=== PATIENT | female | born 1985 | race Caucasian/White ===

== ENCOUNTER 2020-11-27 14:21 | Emergency (ER) | payer OTHER, SELFPAY ==
[2020-11-27 14:40] VITALS: BP 134/78; PULSE 130; RESP 20; TEMP 37; O2SAT 100
--- NOTE | 2020-11-27 15:29 | ED.LOWEXIN ---
HPI - Extremity Injury (Lower) General Chief Complaint: Extremity Injury, Lower Stated Complaint: Fall Time Seen by Provider: 11/27/20 15:29 Source: patient and RN notes reviewed Mode of arrival: ambulatory Limitations: no limitations History of Present Illness HPI Narrative: 35-year-old female who presents ambulatory to [facility] with complaints of pain to her right hip area, mid thigh, and mid lower leg region with bruising noted and minimal tissue swelling of thigh and lower leg region. Patient states she was exercising outdoors and fell hitting the metal ney between 2 boxcars causing injury to her right leg.Patient states she also hit area on right lateral rib area but denies any pain to this area or any difficulty with her breathing, no bruising or swelling noted with lungs clear to auscultation.. Patient has small bruise to anterior aspect of her right hip, bruising and swelling to her right thigh and to her mid lower leg. Patient is ambulatory with steady gait, states that she has put a compression wrap to her right thigh which helps but has not taken any OTC pain medication.Recheck of heart rate 100 regular. MD complaint: hip injury, leg injury and fall Onset (ago): day(s) (1) Type of Injury: blunt Place: street/outdoors Severity: moderate Severity scale (1-10): 6 Relieving factors: nothing Exacerbating factors: weight bearing Context: fall and other (Contusion) Associated symptoms: other (Bruising) Other symptoms: none Treatments prior to arrival: other (Compression around thigh area) Related Data Allergies Allergy/AdvReac Type Severity Reaction Status Date / Time No Known Allergies Allergy Verified 11/27/20 15:18 Review of Systems Review of Systems: Narrative: CONSTITUTIONAL: Denies fever, chills, or sweats. EYES: Denies visual changes, redness, or discharge. ENT: Denies rhinorrhea, congestion, sore throat, or otalgia. CARDIOVASCULAR: Denies chest pain, palpitations, or edema. RESPIRATORY: Denies cough or dyspnea.no pain or difficulty with her breathing. GASTROINTESTINAL: Denies abdominal pain, nausea, vomiting, or diarrhea. GENITOURINARY: Denies dysuria or hematuria. SKIN: Denies rash or itching. MUSCULOSKELETAL: Denies back pain, joint pain, or myalgia.positive for bruising and swelling to her right thigh and mid right lower leg.small bruise anterior right hip. NEUROLOGIC: Denies headache, numbness, or weakness. PSYCHIATRIC:Positive history of anxiety or depression. All systems reviewed & are unremarkable except as noted in HPI and below PMFSH Past Medical History Medical History (Updated 11/29/20 @ 09:24 by Laurence Trotter NP) Arm fracture, right Bronchitis Depression GERD (gastroesophageal reflux disease) Kidney stones UTI (urinary tract infection) Surgical History Surgical History (Updated 11/29/20 @ 09:24 by Laurence Trotter NP) H/O tubal ligation History of tonsillectomy Previous section Family History Family History (Updated 11/29/20 @ 09:25 by Laurence Trotter NP) Father Hypertension Mother Breast cancer Social History Social History (Updated 11/29/20 @ 09:26 by Laurence Trotter NP) Smoking status: Current every day smoker Tobacco type: cigarettes Alcohol intake: unknown Substance use: unknown Living arrangements: with family Gender identity (if verbalized by the patient): Female Comments At time of signature agree with nursing documentation of past medical, surgical and social history. There is no pertinent family history relevant to presenting complaint. Exam Narrative: Exam Narrative: GENERAL: Well-appearing, well-nourished, and in no acute distress. HEAD: Normocephalic, atraumatic. EYES: PERRLA and EOMI. ENT: Nares clear, no rhinorrhea or epistaxis. Mucous membranes moist.TM's normal with good light reflex, throat pink with no redness or tonsil enlargement, no exudates or lesions NECK: Supple.no lymphadenopathy or pain with movement CHEST: Clear to a
== END 2020-11-27 15:54 | disposition home or self-care (01) ==
PROVIDERS: Emergency Provider Registered Nurse
DX: S70.01XA Contusion of right hip, initial encounter (principal); S80.11XA Contusion of right lower leg, initial encounter; W19.XXXA Unspecified fall, initial encounter; K21.9 Gastro-esophageal reflux disease without esophagitis
CPT/HCPCS: 99203; G0463